=== PATIENT | male | born 1950 | race Caucasian/White ===

== ENCOUNTER → 2017-06-15 | Day surgery (SDC) | payer MEDICARE ==
[~2017-06-15] MED LIST: ACETAMINOPHEN 1000 MG/100 ML 100 ML IV ONE; AMOX500T2 PO; BUPIVACAINE/EPINEPHRINE 0.5% PF 30 ML VIAL INFIL ONE; LACTATED RINGER'S 1000 ML INJ 1,000 ML ONE; LIDOCAINE 1.5%/EPINEPHrine 1:200,000 PF SOLN 30 ML AMP ONE; LORT5TAB PO; MIDAZOLAM HCL 2 MG/2 ML VIAL ONE; PROPOFOL 200 MG/20 ML AMP IV ONE
--- NOTE | 2017-06-15 12:23 | TN ---
cc: MARIANELA CORTEZ M.D. DATE OF SURGERY: 06/15/2017 PREOPERATIVE DIAGNOSIS Large 9 cm, left deep back mass. POSTOPERATIVE DIAGNOSIS Large 9 cm, left deep back mass. PROCEDURE Excision of deep 9 cm back mass just off the left of the midline. ANESTHESIA General. SURGEON Dr. Cortez. INDICATION This is a pleasant 67-year-old gentleman who had a longstanding growing mass on his back. It was attempted to be removed by primary care physician and was unable to do it because it was so deep. Plans were made for above. PROCEDURE The patient was taken to the operating room and placed in the supine position. After anesthesia he was placed in the decubitus position. The area was prepped with Betadine. We had previously marked the area. We used the same incision that had previously been made, dissect down to the deep subcutaneous tissue and encountering the capsule of what appears to be a lipomatous Structure. This is enucleated out using combination of electrocautery device and blunt dissection and sharp dissection. The complete mass is removed. It is attached to the deep musculature which is teased away and cauterized. Small blood vessels were cauterized. We then irrigate, hemostasis is assured. The specimen is sent down for pathological analysis. The deep layer is closed with 3-0 Vicryl and the skin is closed with 4-0 Vicryl. Steri-Strips were applied. Sterile bandage was applied. The patient tolerated the procedure well and had no immediate postop complications. Marianela Cortez MD JBROOKE/LINDA /11:48 AM /12:07 PM
== END | disposition home or self-care (01) ==
LOC: ESDC 07:31
PROVIDERS: ATTEND Surgery
DX: D17.1 Benign lipomatous neoplasm of skin and subcutaneous tissue of trunk (principal)
CPT/HCPCS: 00300; 21933; 88304; J0131; J2250; J3010; J7120; 88305